=== PATIENT | female | born 1940 | race Caucasian/White ===

== ENCOUNTER → 2018-06-27 | Outpatient (CLI) | payer MEDICARE ==
[~2018-06-27] MED LIST: ASPI-757 PO; LATA2.5D7 OP; LATODPT OU; LISI-355 PO; PRAV20TA65 PO; PRAV20TA66 PO; PRAV40TA78 PO
--- NOTE | 2018-06-27 11:14 | RADIOLOGY IMAGING REPORT ---
FACILITY: [facility] PATIENT NAME: DANIEL CHRISTIE : [id number] MR: [id number] V: [id number] EXAM DATE: [id number] ORDERING PHYSICIAN: JL NEWBERRY TECHNOLOGIST: Sowmya Velásquez PROCEDURE:BILATERAL DIGITAL SCREENING MAMMOGRAM WITH CAD ASSISTED INTERPRETATION & 3D TOMOSYNTHESIS COMPARISON:Prior mammograms 08/11/16, 07/08/13, 08/01/11, 07/27/11. INDICATIONS:SCREENING FINDINGS: Moderately heterogeneous fibroglandular tissue is seen throughout the breasts. The parenchymal pattern has remained stable allowing for difference in mammographic technique & patient positioning. There is no evidence of malignant appearing mass, malignant appearing calcifications or other secondary sign of malignancy in either breast. DIAGNOSTIC CATEGORY 1--NEGATIVE. RECOMMENDATIONS: ROUTINE MAMMOGRAM AND CLINICAL EVALUATION. IMPRESSION: BIRADS 1: Negative. No significant abnormality is seen. Dictated by: Liliam Orta M.D. on 06/27/2018 at 10:57 Transcribed by: ADAM on 06/27/2018 at 11:00 Approved by: Liliam Orta M.D. on 06/27/2018 at 11:14 [facility]
== END ==
LOC: MAMO 00:35
PROVIDERS: ATTEND Family Medicine
DX: Z12.31 Encounter for screening mammogram for malignant neoplasm of breast (principal)
CPT/HCPCS: 77063; 77067

== ENCOUNTER 2018-10-15 00:19 | Inpatient (IN) | payer MEDICARE ==
[2018-10-14 15:52] LABS: INR 0.93
[2018-10-15] VITALS (10 sets, daily range): BP systolic 101–139; BP diastolic 45–71
[~2018-10-15] VITALS: Ht 167.6 cm; Wt 78.5 kg
[~2018-10-15 00:19] MED LIST changes: +NAPR220C12 PO
[2018-10-15] MEDS ORDERED: LIDOCAINE/SOD BICARB 8.4% SYR ID ONE (10:30)
[2018-10-15] MEDS ORDERED: MIDAZOLAM 2 MG/2 ML VIAL IVP PRN (10:30)
[2018-10-15] MEDS ORDERED: BACITRACIN 50000 UNIT/VIAL 100,000 UNIT in NS 0.9% 3000 ML IRRIGATION BAG 3,000 ML IR ONE (10:30)
[2018-10-15] MEDS ORDERED: ROPIVACAINE/EPI/CLONIDINE/KET 50 ML SYRINGE INJ ONE (10:30)
[2018-10-15] MEDS ORDERED: ACETAMINOPHEN 500 MG TAB PO ONE (10:30)
[2018-10-15] MEDS ORDERED: CELECOXIB 200 MG CAP PO ONE (10:30)
[2018-10-15] MEDS ORDERED: cloNIDine EPIDUR INJ 100MCG/ML 40 MCG, ROPIVACAINE 0.5% 20 ML VIAL 25 ML, EPINEPHrine H... INJ ONE (10:30)
[2018-10-15] MEDS ORDERED: ceFAZolin(*) 1 GM VIAL 1 GM in NS(*) 0.9% 100 ML ADDVANT BAG 100 ML IVPB ONE (10:30)
[2018-10-15] MEDS ORDERED: FAMOTIDINE 20 MG TAB PO ONE (10:30)
[2018-10-15] MEDS ORDERED: NORMOSOL R SOLN(*) 1000 ML BAG 1,000 ML IV PRN (10:30)
[2018-10-15] MEDS ORDERED: PREGABALIN 75 MG CAPSULE PO ONE (10:30)
[2018-10-15] MEDS ORDERED: fentaNYL CITR 100 MCG/2 ML AMP ONE ×2 (13:12→17:53)
[2018-10-15] MEDS ORDERED: ONDANSETRON 4 MG/2 ML VIAL ONE (13:13)
[2018-10-15] MEDS ORDERED: LIDOCAINE MPF 1% 5 ML VIAL ONE (13:13)
[2018-10-15] MEDS ORDERED: DEXAMETHASONE SOD 4 MG/ML VIAL ONE (13:13)
[2018-10-15] MEDS ORDERED: PROPOFOL EMUL(*) 10MG/ML 20 ML 20 ML ONE ×2 (13:13→15:47)
[2018-10-15] MEDS ORDERED: APREPITANT 40 MG CAP PO ONE (14:45)
[2018-10-15] MEDS ORDERED: ROPIVACAINE 0.2% 20 ML VIAL ONE (14:48)
[2018-10-15] MEDS ORDERED: LIDO/EPI 2% MPF 1:200,000 20ML ONE (14:48)
[2018-10-15] MEDS ORDERED: ceFAZolin(*) 2GM/D5W 50ML 50 ML IVPB ONE (15:15)
[2018-10-15] MEDS ORDERED: ROCURONIUM BROM 10 MG/ML 10 ML ONE (15:35)
[2018-10-15] MEDS ORDERED: KETAMINE HCL 200 MG/20 ML MDV ONE (15:37)
[2018-10-15] MEDS ORDERED: VASOPRESSIN 20 UNIT/ML VIAL ONE (15:51)
[2018-10-15] MEDS ORDERED: diphenhydrAMINE 50 MG/ML VIAL IVP PRN (18:10)
[2018-10-15] MEDS ORDERED: FLUSH 10 ML SYR IVP PRN (18:10)
[2018-10-15] MEDS ORDERED: PROMETHAZINE 25 MG/ML 1 ML AMP IVP PRN (18:10)
[2018-10-15] MEDS ORDERED: BISACODYL 10 MG SUPP PR PRN (18:10)
[2018-10-15] MEDS ORDERED: MAGNESIUM HYDROXIDE* 30ML UDCP PO PRN (18:10)
[2018-10-15] MEDS ORDERED: LR 1000 ML BAG 1000 ML IV PRN (18:10)
[2018-10-15] MEDS ORDERED: ZOLPIDEM TARTRATE 5 MG TAB PO PRN (18:10)
[2018-10-15] MEDS ORDERED: ONDANSETRON 4 MG/2 ML VIAL IVP PRN (18:10)
[2018-10-15] MEDS ORDERED: diphenhydrAMINE 25 MG CAP PO PRN (18:10)
[2018-10-15] MEDS ORDERED: HYDROmorphone HCL 2 MG/ML SDV IVP PRN (18:10)
[2018-10-15] MEDS ORDERED: MAGNESIUM CITRATE 300 ML BTL PO PRN (18:10)
[2018-10-15] MEDS: LATANOPRO 0.005% OP SOLN 2.5ML OU SCH ×2 (20:30→21:00)
--- NOTE | 2018-10-15 20:47 | Hospitalist Progress Note ---
Subjective Progress Notes Subjective No cp/sob. 100cc of EBL. 1750cc of crystalloid, dexamethasone, ephedrine and vasopressin given intra-op. Physical Exam Vital Signs Date Time Temp Pulse Resp B/P (MAP) Pulse Ox O2 Delivery O2 Flow Rate FiO2 10/15/18 19:40 97.7 85 16 134/71 (92) 97 Nasal Cannula 2.0 General Appearance: Alert, Awake, No Acute Distress Cardiovascular: Regular Rate and Rhythm (2/6 systolic murmur heard best in on the LSB at 4/5 intercostal space) Respiratory: Clear to Auscultation Extremities: No Edema Assessment and Plan Problems: (1) Status post reverse total shoulder replacement Status: Acute Assessment & Plan: No CV/pulmonary issues. No h/o DVT/PE. She is chronically on ASA that she stopped several days pre-op. It is only for primary prevention, so there is no need to start back any time soon. Will defer to Dr. Vila for DVT prophylaxis. (2) CKD (chronic kidney disease) stage 3, GFR 30-59 ml/min Status: Chronic Assessment & Plan: Pre-op creatinine was 1.1. It will be checked tomorrow. (3) HTN (hypertension) Status: Chronic Assessment & Plan: Continue chronic lisinopril/hctz with parameters. (4) Hyperlipemia Status: Chronic Assessment & Plan: Continue chronic pravastatin. (5) Glaucoma Status: Chronic Assessment & Plan: Continue chronic latanoprost. She uses rewetting drops prn. Copies to: JL NEWBERRY MD ; Problem Qualifiers (1) Status post reverse total shoulder replacement: Laterality: left Qualified Codes: Z96.612 - Presence of left artificial shoulder joint GUSTAVO PURVIS MD Oct 15, 2018 20:47
[2018-10-15] MEDS ORDERED: PRAVASTATIN SOD 20 MG TAB PO SCH (21:00)
--- NOTE | 2018-10-15 22:12 | RADIOLOGY IMAGING REPORT ---
FACILITY: [facility] [place] PATIENT NAME: Lilia Jay : 1940 MR: [id number] V: [id number] EXAM DATE: ORDERING PHYSICIAN: MELANIE VILLEGAS TECHNOLOGIST: Location: [facility] Patient: Lilia Jay : 1940 Visit/Account:[id number] Date of Sevice: 10/15/2018 SHOULDER 1 VIEW LEFT HISTORY: Postop reverse total shoulder arthroplasty. COMPARISON: None. TECHNIQUE: AP view of the left shoulder. FINDINGS: There is a left total shoulder arthroplasty in expected alignment. No fracture or dislocati on. There is narrowing of the acromioclavicular joint. There is subsegmental atelectasis at the left lung base. IMPRESSION: 1. Expected postoperative changes of left total shoulder arthroplasty. Report Dictated By: Pam Braden at 10/15/2018 10:06 PM Report E-Signed By: Pam Braden at 10/15/2018 10:07 PM WSN:[id number]
[2018-10-15] MEDS: ceFAZolin(*) 1 GM VIAL 1 GM in NS(*) 0.9% 100 ML ADDVANT BAG 100 ML IVPB SCH (23:32)
[2018-10-15] MEDS ORDERED: NS(*) 0.9% 250 ML BAG 250 ML ONE (23:34)
[2018-10-16 00:20] VITALS: BP 110/53
[2018-10-16 03:30] VITALS: BP 120/61
--- NOTE | 2018-10-16 05:31 | OPERATIVE REPORT 1 ---
EVENT DATE: October 15, 2018 SURGEON: Klaus Vila MD ANESTHESIOLOGIST: Fransico Madsen MD ANESTHESIA: General LMA. EQUINE VET: Abram Estrada PA-C PREOPERATIVE DIAGNOSIS Left rotator cuff tear arthropathy. POSTOPERATIVE DIAGNOSIS Left rotator cuff tear arthropathy. PROCEDURE PERFORMED Left reverse total shoulder arthroplasty. FINDINGS The patient had a significant amount of arthritic changes associated with it, and no rotator cuff attachment to speak of in the supraspinatus or infraspinatus, but was amenable for reverse. ESTIMATED BLOOD LOSS About 200 mL. DRAINS None. COMPLICATIONS None. TOURNIQUET TIME Not applicable. IMPLANTS DJO surgical reverse with a 32 -4 head with a standard base plate and then four screws associated with the locking screws on the side, and a +4 poly component. INDICATIONS AND HISTORY This patient is a 78-year-old female who presented to my clinic for evaluation of left rotator cuff tear arthropathy. She had had pain and irritation and had a previous rotator cuff repair, but unfortunately, it continued to give her pain and problems, and the new tear had retracted all the way back to the level of the glenoid, so we talked to her about a further repair versus a reverse total shoulder. She wanted to go ahead with the reverse to try to do a [id number] type of operation with the replacement, and so therefore we got her set up to do this today. She understood that there was no guarantee associated with that, and so the risks and benefits were discussed with her and informed consent was obtained at the last clinic visit. DESCRIPTION OF PROCEDURE The patient was brought in to the operating room. She and the procedure were both verified. She was placed supine on the operating table and induced and intubated by Anesthesia. She was then put in a beach-chair position, and the left arm was prepped and draped in the usual fashion. A time-out was observed, verifying the correct patient and procedure. The standard incision was made over the deltopectoral interval after anesthetizing the skin with lidocaine. I then went through the skin and subcutaneous tissue and identified the cephalic vein, and then went through underneath the cephalic vein into the deltopectoral interval onto the clavipectoral fascia. Once in the clavipectoral fascia, I was able to tenodese the biceps tendon in this area that was already torn intra-articularly. This was then followed by removal of the subscapularis, what was left of it. There was quite a bit of tearing associated with the subscapularis, and there was no upper real border, as well as no supraspinatus and infraspinatus associated with this as we got up to this area. Once I was able to do this, I was able to dislocate the head without any difficulty, and then we cut the head without any major issues in accordance with the DJO system. I then removed some osteophytes and then turned attention to the glenoid. Once in the glenoid, I was able to put a retractor posteriorly and then a small retractor anteriorly. I was able to remove the labrum and the remainder portion of the biceps from before. I was able to then put a central drill hole into the glenoid down through the spine to get good bicortical purchase. This was then followed by the standard tamp for the DJO system and then reaming down the standard direction. Once I did this, I then was able to put in a standard base plate without any difficulty, and then put in the guide for the screws, and then put in four screws. We put in 18 anterior and posterior. Both of those were 18 mm, and then we also put 26 mm screws superiorly and inferiorly. This fixated the glenoid base plate excellently, and so therefore we then put in a 32 -4 glenosphere without any difficulty and tightened the set screw until it torque limited. I then turned attention back to the humerus, where I was able to dislocate this once again and then reamed the canal up to a 12 mm canal, and therefore we put in a 10 stem. I then was able to take the reamers and ream out the metaphyseal portion in order to make a nice bowl to accommodate the stem. I then placed four sutures in the lesser tuberosity in order to make it amenable for the rotator cuff repair at the end of the subscapularis. I placed in the final stem after press-fitting with some bone graft in the canal itself. This was then followed by trials of a standard poly and then a +4 poly. The +4 poly had a little bit better movement and tension associated with it, and so this was the final component chosen. We then irrigated with copious amounts of saline using pulsatile lavage, which we had throughout the case, and then put in the final poly component without any difficulty, repaired the subscap using those four sutures, repaired the deltopectoral interval with an 0 Quill followed by a 2-0 Quill in the subcutaneous tissue and then a 4-0 Monocryl in the skin. The wound was then anesthetized again, and a joint cocktail was placed throughout the joint prior to closure. I then dressed it with Steri-Strips, gauze, 4x4s, and a soft dressing. The patient was put in a regular sling and then awakened, extubated, and transferred to the PACU in stable condition. DEBI
[2018-10-16 06:00] VITALS: BP 140/78
[2018-10-16 07:07] VITALS: BP 112/56
[2018-10-16] MEDS: ceFAZolin(*) 1 GM VIAL 1 GM in NS(*) 0.9% 100 ML ADDVANT BAG 100 ML IVPB SCH (07:10)
[2018-10-16] MEDS ORDERED: LISINOPRIL 20 MG TAB PO SCH (09:00)
[2018-10-16] MEDS ORDERED: HYDROCHLOROTHIAZIDE 25 MG TAB PO SCH (09:00)
--- NOTE | 2018-10-16 09:31 | Hospitalist Progress Note ---
Subjective Progress Notes Subjective She was admitted after shoulder surgery. She has no complaints this morning. She had no acute events overnight. She would like to go home today. Patient Complains of: Cardiovascular: No: Chest Pain Respiratory: No: Shortness of Breath Physical Exam Vital Signs Date Time Temp Pulse Resp B/P (MAP) Pulse Ox O2 Delivery O2 Flow Rate FiO2 10/16/18 07:07 94 10/16/18 07:07 97.6 78 16 112/56 (74) Room Air 10/16/18 03:30 1.0 Intake and Output 10/16/18 07:00 Intake Total 5250 ml Output Total 100 ml Balance 5150 ml Intake Oral 1150 ml IV Total 2100 ml Other 2000 ml Output Estimated Blood Loss 100 ml # Voids 2 General Appearance: Alert, Awake, No Acute Distress, Afebrile Neuro: No Gross deficits Cardiovascular: Regular Rate and Rhythm Respiratory: No Respiratory Distress, Clear to Auscultation Psych: Alert & Oriented X3, Appropriate Mood & Affect Result Diagram: 10/16/18 0551 10/16/18 0551 Assessment and Plan Problems: (1) Status post reverse total shoulder replacement Status: Acute Assessment & Plan: No CV/pulmonary issues. No h/o DVT/PE. She is chronically on ASA that she stopped several days pre-op. It is only for primary prevention, so she will hold medication for one week, then resume. (2) CKD (chronic kidney disease) stage 3, GFR 30-59 ml/min Status: Chronic Assessment & Plan: Pre-op creatinine was 1.1. Creatinine 1.0 post-operatively. (3) HTN (hypertension) Status: Chronic Assessment & Plan: Continue chronic lisinopril/hctz with parameters. She will resume Sunday, If she feels dizzy, She will stop medication and call her PCP. (4) Hyperlipemia Status: Chronic Assessment & Plan: Continue chronic pravastatin. (5) Glaucoma Status: Chronic Assessment & Plan: Continue chronic latanoprost. She uses rewetting drops prn. Exam Sepsis Risk: No Definite Risk Problem Qualifiers (1) Status post reverse total shoulder replacement: Laterality: left Qualified Codes: Z96.612 - Presence of left artificial shoulder joint MOBLEYFLORENCE CHAVEZ Rafael SARGENTP Oct 16, 2018 09:31
[2018-10-16] MEDS ORDERED: OXYC-373 PO (09:52)
== END 2018-10-16 11:30 | disposition home or self-care (01) | DRG 483 ==
LOC: OR 00:19 → MED 19:25
PROVIDERS: ADMIT Orthopaedic Surgery; ATTEND Orthopaedic Surgery
PROC: 0RRK00Z Replacement of Left Shoulder Joint with Reverse Ball and Socket Synthetic Substitute, Open Approach (ICD-10-PCS; principal; 2018-10-15 15:35)
DX: M19.012 Primary osteoarthritis, left shoulder (principal); I44.7 Left bundle-branch block, unspecified; I12.9 Hypertensive chronic kidney disease with stage 1 through stage 4 chronic kidney disease, or unspecified chronic kidney disease; N18.3 Chronic kidney disease, stage 3 (moderate); E78.5 Hyperlipidemia, unspecified; H40.9 Unspecified glaucoma; R01.1 Cardiac murmur, unspecified; Z90.710 Acquired absence of both cervix and uterus
CPT/HCPCS: 36415; 82310; 82374; 82435; 82565; 82947; 84132; 84295; 84520; 85014; 85018; 85610; 86850; 86900; 86901; 97165; A4565; C1776; J0690; J1100; J2001; J2405; J2704; J2795; J3010; J3490; J8501

== ENCOUNTER → 2019-03-26 | Outpatient (CLI) | payer MEDICARE ==
[~2019-03-26] MED LIST changes: +OXYC-373 PO
[2019-03-26 10:57] LABS: PLATELET COUNT, AUTOMATED 274 K/uL (150-450)
== END ==
LOC: LAB 10:43
PROVIDERS: ATTEND Family Medicine
DX: I10 Essential (primary) hypertension (principal)
CPT/HCPCS: 36415; 82310; 82374; 82435; 82565; 82947; 84132; 84295; 84520; 85025